=== PATIENT | male | born 1960 | race Two or more races ===

== ENCOUNTER 2016-11-23 06:02 | Inpatient (IN) | payer OTHER ==
[2016-11-22 10:45] VITALS: Ht 175.3 cm; Wt 68.5 kg
[~2016-11-23] VITALS: Ht 175.3 cm; Wt 68.5 kg
[2016-11-23] VITALS (21 sets, daily range): BP systolic 97–131; BP diastolic 57–74; PULSE 54–73; RESP 18–36
[~2016-11-23 06:02] MED LIST: ASPI81TA3 PO; ISOS30TA5 PO; SIMV20TA PO; TAMS0.4C2 PO
[2016-11-23] MEDS ORDERED: BUPIVACAINE 0.25%/EPI (SDV) 30 ML INJ ONE (06:58)
[2016-11-23] MEDS ORDERED: POLYMYXIN/BACITRACIN 1L IRRIG ONE (06:58)
[2016-11-23] MEDS ORDERED: THROMBIN 5000 UNIT VIAL ONE (06:58)
[2016-11-23] MEDS ORDERED: BUPIVACAINE 0.25% (MPF) 30 ML INJ ONE (06:58)
[2016-11-23] MEDS ORDERED: GELATIN SIZE 100 SPONGE ONE (06:58)
[2016-11-23] MEDS ORDERED: CEFAZOLIN 1 GM INJ ONE (07:00)
[2016-11-23] MEDS ORDERED: CEFAZOLIN 2 GM/50 ML (PMX) 50 ML IVPB ONE (07:00)
[2016-11-23] MEDS ORDERED: NEOSTIGMINE 3 MG/3 ML SYRINGE ONE (07:00)
[2016-11-23] MEDS ORDERED: LIDOCAINE 2% (SDV) 5 ML INJ ONE (07:00)
[2016-11-23] MEDS ORDERED: ONDANSETRON 4 MG INJ ONE (07:00)
[2016-11-23] MEDS ORDERED: GLYCOPYRROLATE 0.4 MG INJ ONE (07:00)
--- NOTE | 2016-11-23 07:12 | HPN ---
Date/Time of Note Date/Time of Note DATE: 11/23/16 TIME: 07:11 Interval H&P Admission Note Pt. seen H&P reviewed: No system changes ALEC HERMOSILLO MD Nov 23, 2016 07:12
[2016-11-23] MEDS ORDERED: SUCCINYLCHOLINE CHLORIDE 100 MG/5 ML SYG IV ONE (07:25)
[2016-11-23] MEDS ORDERED: ROCURONIUM 50 MG INJ ONE (07:25)
[2016-11-23] MEDS ORDERED: PROPOFOL 20 ML ONE (07:25)
[2016-11-23] MEDS ORDERED: HYDROCODONE/APAP (5/325) TAB PO PRN (07:30)
[2016-11-23] MEDS ORDERED: DIPHENHYDRAMINE 25 MG CAP PO PRN (07:30)
[2016-11-23] MEDS ORDERED: NALOXONE (0.4 MG/ML) INJ IV PRN (07:30)
[2016-11-23] MEDS ORDERED: PROCHLORPERAZINE 10 MG TAB PO PRN (07:30)
[2016-11-23] MEDS ORDERED: CEFAZOLIN 1 GM/50 ML (PMX) 50 ML IVPB SCH ×4 (07:30→13:00)
[2016-11-23] MEDS ORDERED: ONDANSETRON 4 MG INJ IV PRN ×2 (07:30→10:00)
[2016-11-23] MEDS ORDERED: CYCLOBENZAPRINE 10 MG TAB PO PRN (07:30)
[2016-11-23] MEDS ORDERED: HYDROmorphONE 1 MG/ML SYG IV PRN (07:30)
[2016-11-23] MEDS ORDERED: ACETAMINOPHEN 325 MG TAB PO PRN (07:30)
[2016-11-23] MEDS ORDERED: DEXAMETHASONE 4 MG/ML 1 ML INJ ONE (07:52)
[2016-11-23] MEDS ORDERED: SURGIFOAM POWDER 1 GM KIT ONE (08:01)
[2016-11-23] MEDS ORDERED: LABETALOL HCL 20MG INJ ONE (08:08)
[2016-11-23] MEDS ORDERED: CA CHLORIDE 10% 10 ML SYRINGE ONE (08:35)
[2016-11-23] MEDS ORDERED: FENTAnyl 50 MCG/ML VIAL ONE (09:47)
[2016-11-23] MEDS ORDERED: FENTAnyl 50 MCG/ML VIAL IV PRN ×3 (10:00)
[2016-11-23] MEDS ORDERED: OXYCODONE/ACETAMINOPHEN (5/325) TAB PO PRN (10:00)
[2016-11-23] MEDS ORDERED: EPHEDrine SULFATE 50 MG/5 ML SYG IV PRN (10:00)
[2016-11-23] MEDS ORDERED: HYDROmorphONE (0.2 MG/ML) 10ML SYG IV PRN ×3 (10:00)
[2016-11-23] MEDS ORDERED: LABETALOL HCL 20MG INJ IV PRN (10:00)
[2016-11-23] MEDS ORDERED: hydrALAzine 20 MG INJ IV PRN (10:00)
[2016-11-23] MEDS ORDERED: MEPERIDINE 25 MG INJ IV PRN (10:00)
--- NOTE | 2016-11-23 11:17 | OPR ---
DATE OF OPERATION: 11/23/2016 PREOPERATIVE DIAGNOSIS: C5-C6 degenerative disk disease with central stenosis and upper extremity r adiculopathy. POSTOPERATIVE DIAGNOSIS: C5-C6 degenerative disk disease with central stenosis and upper extremity radiculopathy. OPERATION PERFORMED: 1. C5-C6 diskectomy. 2. Preparation of endplates of C5-C6. 3. Decompression of the central canal with removal of posterior longitudinal ligament. 4. Decompression of bilateral foramens. 5. Placement of interbody cage at the C5-C6 level with Fibergraft bone graft. 6. Placement of anterior fixation at the C5-C6 level. 7. Platelet rich plasma obtained from peripheral blood for use with bone graft. 8. Subcutaneous Marcaine injection for pre and postop analgesia. 9. Cosmetic wound closure of 2 cm incision. 10. Use of intraoperative neuromonitoring for bilateral upper and lower extremities as well as spin al cord monitoring during the entire surgical procedure for 2 hours, measuring SSEPS, MEPS and EMGs. 11. Use of intraoperative microscope for microdissection. 12. Use of intraoperative fluoroscopy for localization and placement of instrumentation. SURGEON: ALEC HERMOSILLO [place] DEMONSTRATOR: ÓSCAR WALDROP FINDINGS: At the start of surgical procedure, it was noted that the patient's nerve root signals we re down in amplitude bilaterally at C5, 10%. Left side C6 down 10%, right side down 30%. At the co nclusion of the procedure return back to normal symmetric to the contralateral side. BLOOD USAGE: None. IMPLANTS: LDR 5 mm lordotic cage with Fibergraft bone graft and platelet-rich plasma. ESTIMATED BLOOD LOSS: 50 mL SPECIMENS: None. DRAINS: None. COMPLICATIONS: None. ANESTHESIOLOGIST: Dr. Lopez TYPE OF ANESTHESIA: General. BRIEF PREOPERATIVE HISTORY: The patient is a healthy 56-year-old male who presented with significan t symptoms of neck pain and upper extremity radiculopathy and noted on new MRI that the patient had significant central stenosis and degenerative disk disease at the one level of C5-C6 causing central stenosis and cord compression. The patient was indicated for surgical procedures as stated above a nd understood the risks, benefits, and alternatives of surgical procedure and was translated with hi s daughter and all questions answered. OPERATION IN DETAIL: The patient was brought to the operating room, placed under anesthesia by Dr. Car contreras and given 2 grams of Ancef. The patient was then placed on the operating room table in the supi ne position, with a bump underneath the shoulder and the neck prepped and draped in the usual steril e fashion after x-ray with fluoroscopy in AP and lateral images verified proper position of her inci greyson line to overly the C5-C6 level. After timeout was performed, subcutaneous injection of 0.25% Marcaine with epinephrine and an incisi on measuring approximately 2 cm overlying the C5-C6 level on the left side transversally was made. All hemostasis was achieved with electrocautery and a careful dissection through the platysma and be tween the interval of the sternocleidomastoid and trachea. Once achieved, the anterior aspect of the cervical spine, retractors were placed and a Bent spinal n eedle was placed into the C5-C6 level. Lateral localizing film verified proper position. Once we verified our proper position of our surgical procedure, we started with our procedure by demarco cing our retractors into the C5-C6 to retract the longus colli and then placed Gallant pins into the C5 and C6 for distraction. At this time, we started with our decompression by removing all disk material which was significantl y degenerative and very little pathology was available for the specimen. Using a high-speed bur, cu rettes and rongeurs, we were able to decompress the central canal and remove all disk material prepa ring the endplates and decompressing. Bilateral foramens were decompressed adequately and all nerve signals returned back to normal symmetric to contralateral side at the conclusion of the procedure. Once concluded with our decompression, we sized a 5 mm lordotic LDR cage into the C5-C6 level filled with Fibergraft and platelet-rich plasma achieved from peripheral blood. This was fitted and AP lateral fluoroscopy verified proper position and the anterior fixation was pl aced. Once concluded, we removed the Gallant pins and filled the holes with bone wax and copiously irrigate d and bipolar cautery for hemostasis. Once this was concluded, we started with our closing procedur e. The platysma was closed with a running 2-0 Vicryl and the subcutaneous skin was closed with 3-0 Vicryl. The skin was covered with Dermabond and clean and dry dressing placed. The patient's neck wa s placed in a Hemphill collar and taken to the recovery room in stable condition, moving upper a nd lower extremities well. The patient will be sent to [facility] for 1 more dose of antibiotics and discharged home. Th e patient will follow up in my office in approximately 7 to 10 days. All instrument, sponge counts and needles were correct at the conclusion of the procedure. The kuldip ent will follow up in the office with instructions for discharge. Dictated By: ALEC REYNOLDS/DESTINEE Conf#: [id number] DID#: [id number]
[2016-11-23] MEDS: HYDROCODONE/APAP (5/325) TAB PO PRN ×2 (11:53→15:43)
--- NOTE | 2016-11-23 19:42 | RADRPT ---
PROCEDURE: Intraoperative fluoroscopy. CLINICAL INDICATION: Intraoperative fluoroscopy during C5-6 fusion.. TECHNIQUE: 8 spot intraoperative fluoroscopic images were provided. The images were reviewed on a high-resolution PACS workstation. COMPARISON: None available FINDINGS: Multiple spot intraoperative fluoroscopic views were provided during cervical spine fusion. The marianne ges demonstrate initial metallic probe at the level of C4, with subsequent metallic probe at the lev el of C5. There is subsequent placement of anterior cervical discectomy and fusion at C5-6. The to laura fluoroscopy time was 18.4 seconds. IMPRESSION: 1. Multiple spot intraoperative fluoroscopic views during C5-6 fusion were provided. 2. Please see operative report of the same day for further information. RPTAT: HGAS .Saturnino Harrison MD, Date Time Electronically viewed and signed by .Saturnino Harrison MD, on 11/23/2016 19:41 .S/
[2016-11-24 07:46] VITALS: BP 126/74; RESP 18
[2016-11-24 07:51] VITALS: BP 119/58; RESP 18
--- NOTE | 2016-11-24 12:37 | DS ---
Date/Time of Note Date/Time of Note DATE: 11/24/16 TIME: 12:35 Discharge Summary Admission/Discharge Info Admit Date/Time Nov 23, 2016 at 06:02 Discharge Date/Time 11/23 Final Diagnosis s/p cervical fusion, C5-6 Patient Condition: Good Consults none Procedures ACDF C5-6 Hx of Present Illness Cardiac history Hospital Course Did well post-op, pain well controlled, c-collar in place Home Meds Reported Medications Isosorbide Mononitrate* (Isosorbide Mononitrate*) 30 Mg Tab.er.24h, 30 MG PO DAILY, TAB 07/12/16 Tamsulosin Hcl* (Tamsulosin Hcl*) 0.4 Mg Cap.er.24h, 0.4 MG PO HS, CAP 01/13/16 Simvastatin* (Zocor*) 20 Mg Tablet, 20 MG PO QHS, #30 TAB 01/13/16 Aspirin* (Aspirin* Chew) 81 Mg Tab.chew, 81 MG PO DAILY, TAB.CHEW 01/13/16 Follow-up Plan my office will call patient for appt Pending Labs none ALEC HERMOSILLO MD Nov 24, 2016 12:37
== END 2016-11-24 16:30 | disposition home or self-care (01) | DRG 473 ==
LOC: REC 06:02 → MERGE 07:30 → EDSTATUS 07:30 → MS1 11:28
PROVIDERS: ADMIT Orthopaedic Surgery Orthopaedic Surgery of the Spine; ATTEND Orthopaedic Surgery Orthopaedic Surgery of the Spine
PROC: 0RT30ZZ Resection of Cervical Vertebral Disc, Open Approach (ICD-10-PCS; 2016-11-23)
PROC: 0RG10A0 Fusion of Cervical Vertebral Joint with Interbody Fusion Device, Anterior Approach, Anterior Column, Open Approach (ICD-10-PCS; principal; 2016-11-23 07:30)
DX: M50.122 Cervical disc disorder at C5-C6 level with radiculopathy (principal); M48.02 Spinal stenosis, cervical region
CPT/HCPCS: 72052; 86999; C1713; J0330; J0690; J1100; J1170; J2405; J2710; J3010